=== PATIENT | female | born 1970 | race Native Hawaiian/Other Pacific Islander ===

== ENCOUNTER 2022-05-24 10:23 | Outpatient (CLI) | payer OTHER | END 2022-05-24 19:16 | disposition home or self-care (01) | LOC: RESP 10:23 | PROVIDERS: ATTEND Specialist | DX: R00.2 Palpitations (principal) ==

== ENCOUNTER 2022-06-06 10:57 | Outpatient (CLI) | payer OTHER | END 2022-06-06 19:17 | disposition home or self-care (01) | LOC: RESP 10:57 | PROVIDERS: ATTEND Specialist | DX: R00.2 Palpitations (principal) ==